=== PATIENT | female | born 1990 | race African-American/Black ===

== ENCOUNTER 2021-12-15 21:19 | Emergency (ER) | payer OTHER ==
[~2021-12-15] VITALS: Ht 149.9 cm; Wt 45.4 kg
[2021-12-15 21:32] VITALS: BP 116/71
--- NOTE | 2021-12-15 21:33 | NUR ---
SEEN AND EXAMINED BY GAURANG
[2021-12-15] MEDS ORDERED: PANTOPRAZOLE 40 MG INJ VIAL IVP ONE (21:45)
[2021-12-15] MEDS ORDERED: NACL 0.9% 1,000 ML IV SCH (21:45)
[2021-12-15] MEDS ORDERED: MORPHINE SULFATE 2 MG/ML SYR IVP ONE (21:45)
[2021-12-15] MEDS ORDERED: ONDANSETRON 4 MG/2 ML VIAL IVP ONE (21:45)
--- NOTE | 2021-12-15 21:46 | NUR ---
PT TO BED #8
[2021-12-15 21:57] LABS: APPEARANCE,URINE CLEAR (CLEAR); BILIRUBIN,URINE NEGATIVE (NEGATIVE); BLOOD, URINE NEGATIVE (NEGATIVE); COLOR,URINE YELLOW (YELLOW); LEUKOCYTE ESTERASE ,URINE 1+ (NEGATIVE); NITRITE, URINE NEGATIVE (NEGATIVE); UGLUCOSE NEGATIVE (NEGATIVE)
[2021-12-15 21:59] LABS: BASOPHILS % (AUTO) 0.4 % (0.0-2.0); EOSINOPHILS % (AUTO) 0.4 % (0.0-4.0); HEMATOCRIT 34.6 % (36-48); HEMOGLOBIN 11.6 g/dL (12.0-16.0); LYMPHOCYTES # (AUTO) 1.1 K/uL (2.5-16.5); LYMPHOCYTES % (AUTO) 11.4 % (20.5-51.1); MEAN CORPUSCULAR HEMOGLOBIN 29 pg (27-31); MEAN CORPUSCULAR HGB CONC 34 g/dL (33-37); MEAN CORPUSCULAR VOLUME 85.3 fL (80-94); MONOCYTES # (AUTO) 0.7 K/uL (0.8-1.0); MONOCYTES % (AUTO) 7.8 % (1.7-9.3); NEUTROPHILS # (AUTO) 7.5 K/uL (1.8-7.7); PLATELET COUNT (AUTO) 298 K/uL (140-450); RED BLOOD CELL COUNT(AUTO) 4.06 MIL/uL (4.20-5.40); WHITE BLOOD COUNT (AUTO) 9.4 K/uL (4.8-10.8)
--- NOTE | 2021-12-15 22:02 | NUR ---
IV ESTABLISHED 22G LEFT FA
[2021-12-15 22:11] LABS: ALBUMIN 4.3 g/dL (3.4-5.0); ANION GAP 12.9 (8-16); CARBON DIOXIDE 26.7 mmol/L (21-32); CREATININE 0.8 mg/dL (0.6-1.3); POTASSIUM 3.6 mmol/L (3.5-5.1); RBC,URINE 0-5 /HPF (0-5); TOTAL BILIRUBIN 0.4 mg/dL (0.0-1.0)
[2021-12-15] MEDS ORDERED: cefTRIAXone 1,000 MG VIAL ONE (22:46)
--- NOTE | 2021-12-15 23:09 | NUR ---
FARAZ TAKEN TO CT VIA RAPHAEL
--- NOTE | 2021-12-15 23:15 | NUR ---
31/F BIB SELF C/C RIGHT FLANK PAIN 8/ X3DAYS. PER PATIENT PAIN IS SHARP AND NONRAD. PAIN. DENIES URINARY S/S. PATIETN DENIES N/V/D/C/SOB/CP AT THIS TIME. RR APPEAR EVEN AND UNLABORED. DOESNT APPEAR TO BE IN DISTRESS. PATIENT PLACED IN BED AND GOWN. BED LOW AND LOCKED. AUDRA SIDE RAILS FOR SAFETY. ALL NEEDS MET PMHX DENIES RX DENIES NKA
--- NOTE | 2021-12-16 02:16 | NUR ---
PATIENT SITTING IN BED. BED LOW AND LOCKED. ALL NEEDS MET
--- NOTE | 2021-12-16 03:24 | NUR ---
PATIENT AMBULATED TO AND BACK TO BED 8
[2021-12-16] MEDS ORDERED: FAMO-90 PO (07:20)
[2021-12-16] MEDS ORDERED: NITR100C7 PO (07:20)
[2021-12-16] MEDS ORDERED: MAG355OR2 PO (07:20)
[2021-12-16] MEDS ORDERED: ONDA-188 PO (07:20)
--- NOTE | 2021-12-16 07:30 | NUR ---
Pt report received from JUSTICE Nicole. Transfer of care at this time.
[2021-12-16 07:40] VITALS: BP 103/63
--- NOTE | 2021-12-16 07:40 | NUR ---
BOTH IVS removed, catheter intact and site benign. Applied folded 4x4 gauze and tape to stop bleeding.
--- NOTE | 2021-12-16 07:44 | NUR ---
Patient discharged with v/s stable. Written and verbal after care instructions ABOUT GASTRITIS, UTI given and explained. Patient alert, oriented and verbalized understanding of instructions. Ambulatory with steady gait. All questions addressed prior to discharge. ID band removed. Patient advised to follow up with PMD. Rx of PEPCID, MAALOX MAXIMUM STRENGTH SUSP, MACROB 100MG, ZOFRAN ODT given. Patient educated on indication of medication including possible reaction and side effects. Opportunity to ask questions provided and answered.
== END 2021-12-16 07:44 | disposition home or self-care (01) ==
LOC: MED 21:19
DX: K29.70 Gastritis, unspecified, without bleeding (principal); K29.80 Duodenitis without bleeding; Z79.899 Other long term (current) drug therapy
CPT/HCPCS: 36415; 74177; 76705; 80053; 81001; 83690; 84702; 85025; 87086; 96361; 96365; 96375; 99285; C9113; J0696; J2270; J2405; Q0092; Q9967